=== PATIENT | female | born 1945 | race Caucasian/White ===

== ENCOUNTER → 2018-11-18 13:52 | Outpatient (CLI) | payer MEDICARE, SELFPAY ==
--- NOTE | 2018-11-18 | DI.MG.S_ITS ---
BILATERAL DIGITAL SCREENING MAMMOGRAM 3D/2D WITH CAD: 11/18/2018 CLINICAL: Routine screening. Comparison is made to exams dated: 03/01/2015 mammogram, 02/23/2014 mammogram, and 02/10/2013 mammogram - [facility]. The tissue of both breasts is predominantly fatty. Current study was also evaluated with a Computer Aided Detection (CAD) system. No significant masses, calcifications, or other findings are seen in either breast. There has been no significant interval change. IMPRESSION: NEGATIVE There is no mammographic evidence of malignancy. A 1 year screening mammogram is recommended. This exam was interpreted at Station ID: [id number]. NOTE: For mammograms, a report in lay terms will be sent to the patient. Approximately 15% of breast malignancies will not be visualized mammographically. In the management of a palpable breast mass, a negative mammogram must not discourage biopsy of a clinically suspicious lesion. Electronically Signed By: Eliud ivey/sonal:11/18/2018 17:19:53 letter sent: Normal Exam ACR BI-RADS Category 1: Negative [id number]
== END ==
PROVIDERS: PCP Internal Medicine; Visit Provider Internal Medicine
DX: Z12.31 Encounter for screening mammogram for malignant neoplasm of breast (principal); M85.88 Other specified disorders of bone density and structure, other site; Z78.0 Asymptomatic menopausal state
CPT/HCPCS: 77063; 77067; 77080

== ENCOUNTER → 2020-01-13 14:49 | Outpatient (CLI) | payer MEDICARE, SELFPAY ==
--- NOTE | 2020-01-13 15:05 | DI.ECHO.S_ITS ---
Echocardiogram Report + + :Name: LUCIE MCMANUS Study Date: 01/13/2020 Height: 63.5 in: :[facility] Weight: 195 lb : : Gender: Female BSA: 1.9 m2 : :: 1945 Age: 74 yrs BP: 148/91 mmHg: :Reason For Study: EDEMA : :Ordering Physician: Dr. Miner : :Sarthak Performed By: Mora Hahn : :Referring: DEVORA CHANG : + + Interpretation Summary The patient was in sinus bradycardia with heart rates between 45-51 bpm during the exam. Left ventricular wall thickness is mildly increased. The left ventricular ejection fraction is normal. There are no focal wall motion abnormalities. Diastolic parameters suggest a relaxation abnormality of the left ventricle, consistent with probable normal filling pressures. The right ventricle is normal in size and function. The right ventricular systolic pressure is estimated to be at least 28 mmHg based on an estimated right atrial pressure of 3 mm Hg. Procedure: A two-dimensional transthoracic echocardiogram with color flow and Doppler was performed. The study quality was technically adequate. There is no prior echocardiogram noted for this patient. The patient was in sinus bradycardia with heart rates between 45-51 bpm during the exam. Left Ventricle: The left ventricle is normal in size. Left ventricular wall thickness is mildly increased. The ejection fraction is estimated to be 60- 65%. The left ventricular ejection fraction is normal. There are no focal wall motion abnormalities. Diastolic parameters suggest a relaxation abnormality of the left ventricle, consistent with probable normal filling pressures. Right Ventricle: The right ventricle is normal in size and function. Atria: Both atria are normal in size. There is no Doppler evidence for an interatrial shunt. Mitral Valve: The mitral valve is normal in structure and function. There is trace mitral regurgitation. Aortic Valve: The aortic valve is trileaflet. The aortic valve opens well. There is no aortic valve stenosis. No aortic regurgitation is present. Tricuspid Valve: The tricuspid valve is normal in structure and function. The right ventricular systolic pressure is estimated to be at least 28 mmHg based on an estimated right atrial pressure of 3 mm Hg. There is mild tricuspid regurgitation. Pulmonic Valve: The pulmonic valve leaflets are thin and pliable; valve motion is normal. There is no pulmonic valvular regurgitation. Great Vessels: The aortic root is normal size. The dimensions of the ascending aorta are normal. The IVC is of normal diameter and collapses greater than 50% with a sniff. This suggests a low right atrial pressure of 3 mm Hg. Pericardium/ Pleura There is no pericardial effusion. There is no pleural effusion. MMode/2D Measurements & Calculations LVIDd: 4.0 cm LVOT diam: 2.0 cm LVIDs: 2.9 cm Ao root diam: 3.6 cm FS: 28.0 % asc Aorta Diam: 3.3 cm EPSS: 0.76 cm Ao Arch Diam (Prox Trans): 2.8 cm IVSd: 1.2 cm LVPWd: 1.2 cm LV victor. diameter/BSA (cm/m^2): 2.1 LV sys. diameter/BSA (cm/m^2): 1.5 LA A2 area: 18.9 cm2 RA long axis: 4.5 cm LA A4 area: 14.8 cm2 RA area: 11.5 cm2 LA length (vol): 4.8 cm RA vol: 25.3 ml LA vol: 49.8 ml RA : 13.1 ml/m2 LA vol index: 25.9 ml/m2 IVC diam: 1.3 cm RVD1 (basal): 3.2 cm TAPSE: 2.6 cm Doppler Measurements & Calculations Ao V2 max: 119.3 cm/sec LVOT Max Yeyo: 95.3 cm/sec Ao V2 mean: 75.5 cm/sec LV V1 max P.6 mmHg Ao max P.7 mmHg LV V1 VTI: 21.9 cm Ao mean P.7 mmHg NIKKIE(I,D): 2.6 cm2 Ao V2 VTI: 27.6 cm NIKKIE(V,D): 2.6 cm2 sev ratio: 0.79 NIKKIE indexed to BSA (cm^2/m^2): 1.3 MV E max yeyo: 62.3 cm/sec TR max yeyo: 229.1 cm/sec MV A max yeyo: 85.2 cm/sec TR max P.2 mmHg MV E/A: 0.73 PA V2 max: 76.6 cm/sec Med Peak E' Yeyo: 3.8 cm/sec PA V2 mean: 47.4 cm/sec E/E' med: 16.5 PA mean P.1 mmHg Lat Peak E' Yeyo: 7.3 cm/sec PA pr(Accel): 31.0 mmHg E/E' lat: 8.5 E/e' average: 12.5 MV dec time: 0.26 sec SV(LVOT): 71.3 ml Electronically signed by: Jason Blanco M.D. on Reading Physician:01/13/2020 08:36 PM
[2020-01-13 17:18] LABS: Add Manual Diff / Slide Review NO; Basophils Absolute Auto 100 /uL (0-100); Basophils Percent Auto 1.4 % (0-2); Eosinophils Absolute Auto 200 /uL (0-450); Eosinophils Percent Auto 2.3 % (2-4); Hematocrit 45.9 % (36-46); Hemoglobin 15.6 g/dL (12.0-16.0); Lymphocytes Absolute Auto 1800 /uL (1100-4500); Mean Corpuscular Hemoglobin 31.9 PG (26-34); Monocytes Absolute Auto 600 /uL (0-900); Monocytes Percent Auto 8.9 % (3-14); Neutrophils Absolute Auto 4100 /uL (1500-7000); Neutrophils Percent Auto 61.4 % (50-75); Platelet Count 216 X10^3/uL (150-400); Red Blood Cell Count 4.88 X10^6/uL (4.0-5.2); Red Cell Distribution Width 13.1 % (11.6-14.8); White Blood Cell Count 6.7 X10^3/uL (4.5-11.0)
[2020-01-13 17:48] LABS: Alanine Aminotransferase 49 IU/L (<35); Albumin 4.1 g/dL (3.5-5.0); Albumin Globulin Ratio 1.5 (1.0-2.8); Alkaline Phosphatase 95 U/L (38-126); Aspartate Aminotransferase 39 IU/L (14-36); BUN Creatinine Ratio 17.9 (6-22); Bilirubin Total 0.8 mg/dL (0.2-1.3); Blood Urea Nitrogen 14 mg/dL (7-17); Calcium 9.7 mg/dL (8.4-10.2); Carbon Dioxide 31 mmol/L (22-32); Chloride 102 mmol/L (98-107); Cholesterol 159 mg/dL (140-199); Estimated Glomerular Filt Rate > 60.0 mL/min (>60); Globulin 2.8 g/dL (1.7-4.1); Glucose 85 mg/dL (80-110); HDL Cholesterol 68 mg/dL (40-60); HEMOLYSIS < 15 (0-50); LDL Cholesterol Calculated 60 mg/dL (<100); Potassium 3.8 mmol/L (3.4-5.1); Sodium 139 mmol/L (137-145); Total Protein 6.9 g/dL (6.3-8.2); Triglycerides 155 mg/dL (35-150)
[2020-01-13 18:14] LABS: TSH w/ Reflex to FT4 3.15 uIU/mL (0.47-4.68)
== END ==
PROVIDERS: PCP Internal Medicine; Referring Provider Internal Medicine; Visit Provider Internal Medicine
DX: I07.1 Rheumatic tricuspid insufficiency (principal); R60.9 Edema, unspecified; I10 Essential (primary) hypertension; E66.9 Obesity, unspecified; E78.00 Pure hypercholesterolemia, unspecified
CPT/HCPCS: 36415; 80053; 80061; 84443; 85025; 93306

== ENCOUNTER → 2020-03-20 13:38 | Outpatient (CLI) | payer MEDICARE, SELFPAY ==
[2020-03-20 15:37] LABS: Alanine Aminotransferase 50 IU/L (<35); Albumin 4.1 g/dL (3.5-5.0); Albumin Globulin Ratio 1.3 (1.0-2.8); Alkaline Phosphatase 93 U/L (38-126); Aspartate Aminotransferase 40 IU/L (14-36); Bilirubin Total 0.8 mg/dL (0.2-1.3); Bilirubin Unconjugated 0.6 mg/dL (0.0-1.1); Globulin 3.1 g/dL (1.7-4.1); HEMOLYSIS < 15 (0-50); Total Protein 7.2 g/dL (6.3-8.2)
== END ==
PROVIDERS: PCP Internal Medicine; Referring Provider Internal Medicine; Visit Provider Internal Medicine
DX: R74.8 Abnormal levels of other serum enzymes (principal)
CPT/HCPCS: 36415; 80076

== ENCOUNTER → 2020-06-26 12:13 | Outpatient (CLI) | payer MEDICARE, OTHER, SELFPAY ==
--- NOTE | 2020-06-26 | DI.US.S_ITS ---
PROCEDURE: US ABDOMEN LIMITED INDICATIONS: abn lfts TECHNIQUE: Real-time focused scanning was performed of the abdomen, with image documentation. COMPARISON: None. FINDINGS: The liver demonstrates normal size. The liver demonstrates generalized moderately increased echogenicity. This decreases ultrasound sensitivity for detection of hepatic masses. There is an apparent mobile sludge ball seen that measures up to 3.4 cm. No definite shadowing is seen. The gallbladder wall is not thickened, measuring 3 mm or less. No specific pericholecystic fluid is seen. The sonographic Trevino sign is negative. There is no biliary dilatation, the common bile duct measures 5.5 mm. No significant pancreatic abnormality is seen on these images. IMPRESSION: The liver demonstrates increased echogenicity. This finding is nonspecific, yet it is most commonly attributed to fatty infiltration. Apparent mobile sludge ball, without additional sonographic signs of cholecystitis. No biliary dilatation is seen. Dictated by: Darin Leslie M.D. on 06/27/2020 at 14:23 Approved by: Darin Leslie M.D. on 06/27/2020 at 14:24
== END ==
PROVIDERS: PCP Internal Medicine; Referring Provider Internal Medicine; Visit Provider Internal Medicine
DX: R74.8 Abnormal levels of other serum enzymes (principal)
CPT/HCPCS: 76705

== ENCOUNTER → 2020-07-24 15:19 | Outpatient (CLI) | payer MEDICARE, SELFPAY ==
[2020-07-24 16:39] LABS: Alanine Aminotransferase 49 IU/L (<35); Albumin 4.1 g/dL (3.5-5.0); Albumin Globulin Ratio 1.4 (1.0-2.8); Alkaline Phosphatase 95 U/L (38-126); Aspartate Aminotransferase 43 IU/L (14-36); Bilirubin Total 0.6 mg/dL (0.2-1.3); Bilirubin Unconjugated 0.5 mg/dL (0.0-1.1); HEMOLYSIS 15 (0-50); Total Protein 7.1 g/dL (6.3-8.2)
== END ==
PROVIDERS: PCP Internal Medicine; Referring Provider Internal Medicine; Visit Provider Internal Medicine
DX: R74.8 Abnormal levels of other serum enzymes (principal)
CPT/HCPCS: 36415; 80076

== ENCOUNTER 2021-05-25 15:20 | Emergency (ER) | payer MEDICARE, SELFPAY ==
[2021-05-25 15:25] VITALS: BP 144/65; PULSE 52; RESP 14; TEMP 36.6; O2SAT 94; BMI 32.9
--- NOTE | 2021-05-25 15:30 | DI.RAD.S_ITS ---
PROCEDURE: XR SHOULDER LT MIN 2V INDICATIONS: fall with shoulder pain TECHNIQUE: 2 views of the shoulder were acquired. COMPARISON: None. FINDINGS: Bones: There is a comminuted and mildly displaced of the proximal humerus in the region of the surgical neck. No additional osseous fracture is identified on the included views. Soft tissues: No suspicious soft tissue calcifications. IMPRESSION: Comminuted and mildly displaced fracture of the proximal humerus. Dictated by: Luis Schrader M.D. on 05/25/2021 at 15:53 Approved by: Luis Schrader M.D. on 05/25/2021 at 15:55
--- NOTE | 2021-05-25 16:50 | ED_ITS ---
HPI - Fall General Chief Complaint: Fall Stated Complaint: Fall onto shoulder Time Seen by Provider: 05/25/21 16:35 Source: patient Mode of arrival: EMS History of Present Illness HPI Narrative: The patient was out of her home prior to arrival, trying to retrieve her trash can down the driveway. She stumbled, and went down, landing on her left shoulder. She describes having her head in the can. She denies any head or neck injuries. She has no back pain. She has no numbness or weakness in her hands, but she has severe left shoulder pain. She is ambulatory with no hip or lower extremity injuries. She is right-hand dominant. Her only significant complaint is left shoulder pain. Related Data Previous Rx's Medication Instructions Recorded hydrocodone 5 mg-acetaminophen 325 1 tab PO Q4-6H PRN #20 tab 05/25/21 mg tablet Allergies Allergy/AdvReac Type Severity Reaction Status Date / Time No Known Drug Allergies Allergy Verified 05/25/21 15:30 Review of Systems Constitutional Constitutional: Reports as per HPI Comments: No recent illness. No complaints except right shoulder pain as noted in HPI. Patient History Medical History (Updated 05/25/21 @ 17:49 by Sabas Hoffman MD) No significant past medical history Surgical History No significant past surgical history Social History Smoking Status: Unknown if ever smoked Smoking Status: Unknown if ever smoked alcohol intake frequency: 0-2 drinks per day Substance Use Type: does not use Exam Initial Vital Signs Initial Vital Signs: Vital Signs Temperature 97.8 F 05/25/21 15:25 Pulse Rate 52 L 05/25/21 15:25 Respiratory Rate 14 05/25/21 15:25 Blood Pressure 144/65 H 05/25/21 15:25 Pulse Oximetry 94 05/25/21 15:25 Const General: cooperative, healthy appearing and comfortable [facility] Head: normocephalic and atraumatic Eyes General: appearance normal, both eyes and all related structures Pupils: PERRL EOM: EOM intact bilaterally Neck Neck: normal visual inspection Chest Chest: normal inspection of the chest (No tenderness.) Resp Effort & Inspection: normal respiratory effort Auscultation: clear to auscultation bilaterally Cardio Palpation: normal PMI Rate: regular rate Rhythm: regular rhythm Heart Sounds: S1 normal and S2 normal GI Palpation: No tender Back/Spine/Pelvis Back: normal to inspection and No back tenderness Skin General: no rashes or lesions noted Neuro General: patient alert, patient awake, patient oriented x3 and no focal motor deficits Extrem Other: Palpable defect in the proximal left humerus bone. No tenderness throughout the left elbow, and the remainder left arm. Left radial pulse is normal. Right arm, and both lower extremities are atraumatic. Psych Appearance: grossly normal Procedures Orthopedic Splinting/Casting Injury #1: Side: right Upper Extremity Injury Location: shoulder Upper Extremity Immobilizer: sling/shoulder immobilizer Post splinting neuro exam: intact Post splinting vascular exam: intact Placed by: Nursing Course Course Course Narrative: The patient was given Dilaudid, her left arm was placed in a sling. She will be discharged on hydrocodone for additional pain management she is referred to Dr. Arielle Hernandez for follow-up. Orders Ordered: ED Orders 05/25/21 15:30 XR shoulder LT min 2V Stat Discontinued Medications Hydromorphone HCl (Hydromorphone 1 Mg Inj) 1 mg IM NOW ONE Stop: 05/25/21 16:51 Last Admin: 05/25/21 16:56 Dose: 1 mg Documented by: IGNACIA Vital Signs Vital signs: Vital Signs - 8 hr 05/25/21 15:25 05/25/21 17:31 Temperature 97.8 F Pulse Rate 52 L 58 L Respiratory Rate 14 Blood Pressure 144/65 H 108/57 L Pulse Oximetry 94 97 MDM - Fall Imaging Data Left shoulder x-ray: Radiologist's Impression: Comminuted and mildly displaced fracture of the proximal humerus. Discharge Plan Departure Patient Disposition: Home Clinical Impression: Closed fracture of left proximal humerus Instructions: Humeral Shaft Fracture Activity Restrictions/Additional Instructions: Keep your left arm immobilized in the sling. Tylenol or Advil as needed for pain. Hydrocodone every 4 hours for added pain control. Follow-up with Dr. Arabella Hernandez. Call for an appointment. Prescriptions: New hydrocodone-acetaminophen 5-325 mg tablet 1 tab PO Q4-6H PRN (Reason: pain) Qty: 20 0RF Referrals: Regina Bell MD [Physician] - Kristofer De León MD [Primary Care Provider] -
[2021-05-25] MEDS: HYDROMORPHONE 1 MG INJ IM (16:56)
[2021-05-25 17:31] VITALS: BP 108/57; PULSE 58; O2SAT 97
[2021-05-25] MEDS: HYDROCODONE/ACET 5/325 TABLET 1 TAB PO (18:08)
[2021-05-25] MEDS: ONDANSETRON 4 MG ODT PREPACK 1 BOTTLE MISC (18:41)
== END 2021-05-25 18:25 | disposition home or self-care (01) ==
PROVIDERS: Emergency Provider Emergency Medicine; PCP Internal Medicine
DX: S42.202A Unspecified fracture of upper end of left humerus, initial encounter for closed fracture (principal); W01.0XXA Fall on same level from slipping, tripping and stumbling without subsequent striking against object, initial encounter
CPT/HCPCS: 73030; 96372; 99283; 99284; J1170

== ENCOUNTER 2021-07-08 13:48 | Emergency (ER) | payer MEDICARE, SELFPAY ==
[2021-07-08] VITALS (13 sets, daily range): BP systolic 146–170; BP diastolic 67–79; PULSE 50–70; RESP 16–18; TEMP 36.7; O2SAT 92–98; BMI 33.6
--- NOTE | 2021-07-08 14:18 | ED_ITS ---
HPI - Extremity Problem General Chief complaint: Extremity Problem,Nontraumatic Stated complaint: Hip Pain Time Seen by Provider: 07/08/21 14:00 Source: patient Mode of arrival: EMS Limitations: no limitations History of Present Illness HPI Narrative: This is a 75-year-old female who comes in with complaint of left buttock pain radiating down her legs towards her calf. Patient states she has had some discomfort but worsened significantly over the weekend. She states it starts in her left buttock radiates down words. She had some tingling but no loss of sensation she does not appreciate weakness but is painful when she flexes at the hip or tries to walk or weightbear. She does not recall any recent trauma or injury. She does have a left humeral fracture that occurred 6 weeks ago and it has changed how she moves and she has done a lot more twisting and using a baseball bat for a cane to help her get around. She states [place] fracture has been improving she is gaining a lot more mobility and motion. She states when she lays flat or is still she does not have pain. He states today she tried some hydrocodone had minimal improvement. She has not appreciated any swelling, redness or warmth. 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 Related Data Previous Rx's Medication Instructions Recorded hydrocodone 5 mg-acetaminophen 325 1 tab PO Q4-6H PRN #20 tab 05/25/21 mg tablet diazepam 2 mg tablet (Valium) 2 mg PO TID PRN #10 tab 07/08/21 hydrocodone 5 mg-acetaminophen 325 1 tab PO Q6H PRN #10 tab 07/08/21 mg tablet lidocaine 5 % topical patch 1 patch TOPICAL DAILY PRN #15 ea 07/08/21 meloxicam 7.5 mg tablet 7.5 mg PO DAILY PRN #10 tab 07/08/21 Allergies Allergy/AdvReac Type Severity Reaction Status Date / Time No Known Drug Allergies Allergy Verified 05/25/21 15:30 Review of Systems Review of Systems ROS Unobtainable: All systems reviewed & are unremarkable except as noted in HPI and below Patient History Medical History No significant past medical history Surgical History No significant past surgical history Social History Smoking Status: Unknown if ever smoked Smoking Status: Unknown if ever smoked alcohol intake frequency: 0-2 drinks per day Substance Use Type: does not use Exam Narrative Exam Narrative: GENERAL: Alert and oriented x three, female in mild distress. HEENT: Head normocephalic, atraumatic, EOMI, pupils reactive, face symmetric, moist mucous membranes NECK: Supple, full range of motion CARDIOVASCULAR: Regular rate and rhythm without murmurs, rubs or gallops. RESPIRATORY: Breath sounds equal bilaterally, no wheezes rales or rhonchi. ABDOMEN: Soft, nontender. Normoactive bowel sounds all 4 quadrants. No guarding or rebound, rigidity, no mass : No CVA tenderness BACK: No cervical, thoracic or lumbar vertebral point tenderness. Patient has normal range of motion. Patient's gait is [antalgic/normal]. Muscle strength is 5/5 in lower extremities, Dorsalis pedis and tibialis pulses are 2+ and lower extremities. Sensation is intact in the lower extremities. EXTREMITIES: Normal range of motion, no clubbing or edema. Neurovascularly intact. Patient does not have any point tenderness on examination the buttock, thigh or hip. No weakness appreciated. With passive flexion patient is asymptomatic. NEUROLOGICAL: Cranial nerves II through XII grossly intact. Moving all extremities. SKIN: Warm, dry, no petechiae, no rashes or lesions. Initial Vital Signs Initial Vital Signs: Vital Signs Temperature 98.1 F 07/08/21 14:03 Pulse Rate 53 L 07/08/21 14:03 Respiratory Rate 18 07/08/21 14:03 Blood Pressure 152/71 H 07/08/21 14:03 Pulse Oximetry 98 07/08/21 14:03 Course Orders Ordered: ED Orders 07/08/21 14:34 XR hip w pel if done LT 2V Stat Discontinued Medications Hydrocodone Bitart/Acetaminophen (Hydrocodone/Acet 5/325 Prepack) 1 bottle MISC SEEINSTR ONE Stop: 07/08/21 17:27 Diazepam (Diazepam 5 Mg Tablet) 10 mg PO NOW ONE Stop: 07/08/21 14:35 Last Admin: 07/08/21 14:52 Dose: 10 mg Documented by: ALMA Ketorolac Tromethamine (Ketorolac 30 Mg/Ml Vial) 30 mg IM NOW ONE Stop: 07/08/21 14:35 Last Admin: 07/08/21 14:53 Dose: 30 mg Documented by: ALMA Lidocaine (Lidocaine Patch 1 Each Adh..Patch) 1 each TOP NOW ONE Stop: 07/08/21 14:35 Last Admin: 07/08/21 14:52 Dose: 1 each Documented by: ALMA Prednisone (Prednisone 20 Mg Tablet) 60 mg PO NOW ONE Stop: 07/08/21 14:40 Last Admin: 07/08/21 14:52 Dose: 60 mg Documented by: ALMA Reevaluation(s) Reevaluation #1: Patient had hypoxia after the Valium. She has healing arousable but does drop her O2. After some monitoring were able to wean her off O2 for over an hour and does have any additional hypoxia. Time: 17:33 Reevaluation #2: Patient able to ambulate here in the department. She has a left humeral fracture she can not use a walker but rib to find case which may be helpful she has been using a baseball bat at home. Vital Signs Vital signs: Vital Signs - 8 hr 07/08/21 14:03 07/08/21 14:30 07/08/21 15:00 Temperature 98.1 F Pulse Rate 53 L 56 L 56 L Respiratory Rate 18 18 16 Blood Pressure 152/71 H 170/79 H 163/71 H Pulse Oximetry 98 95 92 07/08/21 15:34 07/08/21 15:35 07/08/21 15:36 Temperature Pulse Rate 50 L 50 L 61 Respiratory Rate 16 17 Blood Pressure 147/69 H 147/69 H Pulse Oximetry 97 97 98 07/08/21 16:00 07/08/21 16:01 07/08/21 16:30 Temperature Pulse Rate 54 L 55 L 68 Respiratory Rate Blood Pressure 146/67 H 161/71 H Pulse Oximetry 96 96 97 07/08/21 17:00 07/08/21 17:01 07/08/21 17:03 Temperature Pulse Rate 64 68 59 L Respiratory Rate 18 Blood Pressure 148/73 H 148/73 H Pulse Oximetry 95 93 94 07/08/21 17:14 Temperature Pulse Rate 70 Respiratory Rate Blood Pressure 154/73 H Pulse Oximetry 94 MDM - Extremity (Nontraumatic) Imaging Data Extremity x-ray #1: Radiologist's Impression: [address] [address] XRay Report Signed Patient: Jenni Mota MR#: [id number] : 1945 Acct:[id number] Age/Sex: 75 / F Date of Service: 07/08/21 Loc: ED Accession Number: [id number] ?? Procedure: XR hip w pel if done LT 2V Ordering Provider: Qi Cheng D.O. PROCEDURE:? XR HIP W PEL IF DONE LT 2V ? INDICATIONS:? left hip pain, no fall. ? TECHNIQUE:? AP pelvis with cross-table lateral view of the left hip. ? COMPARISON:? None. ? FINDINGS:? ? Bones:? No acute fractures or dislocations.? Pelvic ring appears intact.? No suspicious bony lesions.? Moderate to severe degenerative changes in the hips bilaterally with joint space narrowing, subchondral sclerosis, and marginal osteophyte formation.? Findings may be slightly worse on the right.? Degenerative changes are seen in the included lower lumbar spine. ? Soft tissues:? The visualized bowel gas pattern is normal.? No suspicious soft tissue calcifications.? ? ? IMPRESSION:? No acute osseous abnormality.? Moderate to severe bilateral hip osteoarthrosis.? If clinical suspicion and/or symptoms persist, additional imaging with repeat plain films, or advanced imaging (e.g. CT, MRI) may be helpful for further assessment. ? ? Dictated by: Luis Schrader M.D. on 07/08/2021 at 14:55 ? ? Approved by: Luis Schrader M.D. on 07/08/2021 at 14:58?? [facility] Narrative Medical decision making narrative: This is a 75-year-old female comes emergency department with complaint of left hip pain that is been worsened likely by changing her gait and movement secondary to a left humeral fracture that occurred 6 weeks ago. She has been using a baseball bat as a cane. She has had some discomfort but significantly worsened this weekend. She tried massage which did not seem to change anything. If she is still, lying flat or not walking sure pain is not present. With flexion movement she has increased pain in the left buttock SI region and radiating down her leg. She does not have any new numbness or tingling. No weakness. She does not any back tenderness on examination. She does have osteoarthritic changes on x-ray with no other known trauma. She had improvement with pain medications but was hypoventilating 2nd to 10 mg Valium was monitored and has improved. She is ambulating without assistance in the department but was given a cane as this may be helpful for her. Discharge Plan Departure Patient Disposition: Home Clinical Impression: Left lumbar radiculopathy, Hip osteoarthritis Instructions: DI for Osteoarthritis Activity Restrictions/Additional Instructions: Follow-up with your physician for recheck. I would also discussed that your PT appointment tomorrow about helping you to adjust your motion is not only for your left upper extremity but also for your left lower extremity. Take steroids daily until gone. You may use lidocaine patch to the affected area daily. Take muscle relaxer 1 tablet every 8 hours as needed for muscle spasm. You may take pain medication 1 tablet every 12 hours as needed. You can take Tylenol up to a 1000 mg every 8 hours with this medication as well Prescription sent to [facility] Please return for rapidly worsening symptoms, inability to walk, loss of bowel or bladder control, new weakness, in the mid to lift or move your leg, your foot, new redness warmth or skin changes or other new or concerning symptoms. Prescriptions: New lidocaine 5 % adhesive patch,medicated 1 patch topical DAILY PRN (Reason: pain) Qty: 15 0RF Rx Instructions: leave on most painful area for up to 12 hrs diazepam [Valium] 2 mg tablet 2 mg PO TID PRN (Reason: muscle spasm) Qty: 10 0RF hydrocodone-acetaminophen 5-325 mg tablet 1 tab PO Q6H PRN (Reason: pain) Qty: 10 0RF meloxicam 7.5 mg tablet 7.5 mg PO DAILY PRN (Reason: pain) Qty: 10 0RF No Action hydrocodone-acetaminophen 5-325 mg tablet 1 tab PO Q4-6H PRN (Reason: pain) Qty: 20 0RF Referrals: Kristofer De León MD [Primary Care Provider] -
--- NOTE | 2021-07-08 14:34 | DI.RAD.S_ITS ---
PROCEDURE: XR HIP W PEL IF DONE LT 2V INDICATIONS: left hip pain, no fall. TECHNIQUE: AP pelvis with cross-table lateral view of the left hip. COMPARISON: None. FINDINGS: Bones: No acute fractures or dislocations. Pelvic ring appears intact. No suspicious bony lesions. Moderate to severe degenerative changes in the hips bilaterally with joint space narrowing, subchondral sclerosis, and marginal osteophyte formation. Findings may be slightly worse on the right. Degenerative changes are seen in the included lower lumbar spine. Soft tissues: The visualized bowel gas pattern is normal. No suspicious soft tissue calcifications. IMPRESSION: No acute osseous abnormality. Moderate to severe bilateral hip osteoarthrosis. If clinical suspicion and/or symptoms persist, additional imaging with repeat plain films, or advanced imaging (e.g. CT, MRI) may be helpful for further assessment. Dictated by: Luis Schrader M.D. on 07/08/2021 at 14:55 Approved by: Luis Schrader M.D. on 07/08/2021 at 14:58
[2021-07-08] MEDS: predniSONE 20 MG TABLET 60 MG PO (14:52)
[2021-07-08] MEDS: diazePAM 5 MG TABLET 10 MG PO (14:52)
[2021-07-08] MEDS: LIDOCAINE PATCH 1 EACH ADH..PATCH TOP (14:52)
[2021-07-08] MEDS: KETOROLAC 30 MG/ML VIAL IM (14:53)
--- NOTE | 2021-07-08 15:36 | PC.NURSE ---
pt oxygen had dropped to 84% on RA at 1510, woke pt placed on 2LNC. sat's now mid 90's.
[2021-07-08] MEDS: HYDROCODONE/ACET 5/325 PREPACK 1 BOTTLE MISC (17:36)
== END 2021-07-08 18:02 | disposition home or self-care (01) ==
PROVIDERS: Emergency Provider Emergency Medicine; PCP Internal Medicine
DX: M54.16 Radiculopathy, lumbar region (principal); M16.0 Bilateral primary osteoarthritis of hip; R09.02 Hypoxemia
CPT/HCPCS: 73502; 96372; 99283; 99284; J1885

== ENCOUNTER → 2024-03-01 15:13 | Outpatient (CLI) | payer MEDICARE, SELFPAY ==
--- NOTE | 2024-03-01 15:19 | EKG_ITS ---
[address] [address] Test Date: 2024-03-01 Pat Name: Jenni Mota Department: [facility] Room: Gender: Female [employer]: TALIA : 1945 Requested By: Order Number: [id number] Reading MD: Alex Chacko Measurements Intervals [place] Rate: 49 P: 60 W[place]: 210 QRS: -36 QRSD: 98 T: 43 QT: 462 QTc: 417 Interpretive Statements Sinus bradycardia with 1st degree AV block Left axis deviation Possible Anterior infarct , age undetermined Electronically Signed On 03-03-2024 17:57:55 PDT by Alex Chacko
[2024-03-01 16:00] LABS: Appearance Urine UA CLOUDY; Bilirubin Urine UA NEGATIVE (NEGATIVE); Color Urine UA YELLOW; Glucose Urine UA NEGATIVE (Negative); Ketones Urine UA 1+ (NEGATIVE); Leukocyte Esterase Urine UA 2+ (NEGATIVE); Nitrite Urine UA NEGATIVE (Negative); Occult Blood Urine UA NEGATIVE (Negative); Protein Urine UA TRACE (Negative); Specific Gravity Urine UA >=1.030 (1.000-1.035)
[2024-03-01 16:02] LABS: pH Urine UA 5.5 (4.5-8.0)
[2024-03-01 16:16] LABS: Bacteria Urine Few (2-10); Culture Indicated Urine Specimen Cultured; Mucus Urine 1+ (Negative); RBC Urine 0-1/HPF (0-5/HPF); Squamous Epithelial Cell Urine 1-5 /HPF (0-5/HPF); Urine Volume Low Vol <10mL (spun); WBC Urine 5-10/HPF (0-5/HPF)
[2024-03-01 16:17] LABS: Carbon Dioxide 29 mmol/L (22-32); Chloride 103 mmol/L (98-107); HEMOLYSIS < 15 (0-50)
[2024-03-01 16:19] LABS: BUN Creatinine Ratio 20.3 (6-22); Blood Urea Nitrogen 15 mg/dL (7-17); Calcium 9.9 mg/dL (8.4-10.2); Estimated Glomerular Filt Rate > 60 mL/min (>60); Glucose 91 mg/dL (80-110); Potassium 3.7 mmol/L (3.4-5.1); Sodium 137 mmol/L (137-145)
[2024-03-01 16:20] LABS: Add Manual Diff / Slide Review NO; Basophils Absolute Auto 100 /uL (0-100); Basophils Percent Auto 1.3 % (0-2); Eosinophils Absolute Auto 300 /uL (0-450); Eosinophils Percent Auto 3.2 % (2-4); Hematocrit 46.6 % (36-46); Hemoglobin 15.6 g/dL (12.0-16.0); Hemoglobin A1C% w Est Avg Glu 5.1 % (4.0-6.0); Lymphocytes Absolute Auto 1500 /uL (1100-4500); Lymphocytes Percent Auto 18.2 % (25-40); Mean Corpuscular HGB Conc 33.5 % (30-36); Mean Corpuscular Hemoglobin 31.2 PG (26-34); Mean Corpuscular Volume 93.2 fL (80-100); Monocytes Absolute Auto 600 /uL (0-900); Monocytes Percent Auto 6.7 % (3-14); Neutrophils Absolute Auto 5900 /uL (1500-7000); Neutrophils Percent Auto 70.6 % (50-75); Platelet Count 275 X10^3/uL (150-400); Red Cell Distribution Width 13.8 % (11.6-14.8); White Blood Cell Count 8.3 X10^3/uL (4.5-11.0)
== END ==
PROVIDERS: PCP Student in an Organized Health Care Education/Training Program; Referring Provider Orthopaedic Surgery; Visit Provider Orthopaedic Surgery
DX: Z01.818 Encounter for other preprocedural examination (principal); R73.9 Hyperglycemia, unspecified; Z01.812 Encounter for preprocedural laboratory examination; N39.0 Urinary tract infection, site not specified
CPT/HCPCS: 36415; 80048; 81001; 83036; 85025; 87086; 93005

== ENCOUNTER 2024-03-25 06:05 | Day surgery (SDC) | payer MEDICARE, SELFPAY ==
[2024-03-11 12:44] VITALS: BMI 29.7
[2024-03-18 15:07] VITALS: BMI 29.7
[2024-03-25] VITALS (22 sets, daily range): BP systolic 71–142; BP diastolic 41–80; PULSE 43–76; RESP 6–20; TEMP 35.8–36.9; O2SAT 90–100; BMI 29.7
--- NOTE | 2024-03-25 | DI.RAD.S_ITS ---
PROCEDURE: XR HIP W PEL IF DONE RT 4V INDICATIONS: ANTERIOR RIGHT HIP INTRA OP TECHNIQUE: 4 digital images of the right hip were submitted from the OR COMPARISON: [facility], CR, XR HIP W PEL IF DONE LT 2V, 07/08/2021, 14:26. FINDINGS: Bones: There are no osseous abnormalities. SI and hip joints: Right total hip prosthesis is anatomically aligned. Severe left hip degeneration noted. Soft tissues: Mild soft tissue swelling at the surgical site appreciated IMPRESSION: Right total hip prosthesis in anatomic alignment. Severe left hip degeneration Dictated by: Matthew Sweeney M.D. on 03/26/2024 at 8:56 Approved by: Matthew Sweeney M.D. on 03/26/2024 at 8:57
--- NOTE | 2024-03-25 06:00 | DI.RAD.S_ITS ---
PROCEDURE: XR HIP W PEL IF DONE RT 2V INDICATIONS: ROSA MARIA TECHNIQUE: AP pelvis and lateral view of the hip acquired. COMPARISON: [facility], CR, XR HIP W PEL IF DONE LT 2V, 07/08/2021, 14:26. FINDINGS: Bones: Patient is status post right hip arthroplasty, with hardware components in expected positions. The hip joint appears congruent. The visualized bony structures appear intact. Soft tissues: Overlying postoperative changes are noted. No suspicious soft tissue densities. IMPRESSION: Expected post-operative appearance of a hip arthroplasty. Dictated by: Ten Sigala M.D. on 03/25/2024 at 10:52 Approved by: Ten Sigala M.D. on 03/25/2024 at 10:53
[2024-03-25] MEDS: LACTATED RINGERS 1,000 ML 42 ML IV ×2 (06:45→11:00)
[2024-03-25] MEDS: ACETAMINOPHEN 325 MG TABLET 975 MG PO (06:52)
[2024-03-25] MEDS: MELOXICAM 7.5 MG TABLET 15 MG PO (06:52)
[2024-03-25] MEDS: VANCOMYCIN 1,000 MG/200 ML PIGGYBACK 200 MG IV (06:52)
--- NOTE | 2024-03-25 06:56 | P.OP_ITS ---
Operative Date/Time/Diagnoses Date of procedure: 03/25/24 Time of procedure: 08:00 Pre-op diagnosis: Severe right hip OA Post-op diagnosis: same Procedure & Clinicians Procedure: Right total hip arthroplasty anterior approach Same procedure as scheduled: Yes Indications: The patient has had progressively worsening right hip pain with radiographic changes consistent with arthritis. Non-operative management has failed and the patient has requested total hip replacement. The risks, benefits and alternatives to surgery were discussed with the patient prior to proceeding. Risks discussed included, but were not limited to, failure to relieve pain, leg length discrepancy, dislocation, stiffness, infection, nerve damage, deep venous thrombosis, pulmonary embolism, stroke, coma, heart attack, permanent paralysis and , as well as the potential need for eventual revision of the prosthetic. Surgeon: Bonny Hernandez Strategic Account Director: Gerard Martinez Anesthesia Type: Spinal Operative Notes Findings: Severe right hip OA, self bone, adequate stability Closure Type: primary Specimen(s): none sent Prosthetic devices, grafts, tissues, transplants, or devices: Hernandez and nephew R3 52, neutral poly liner,one 6.5 mm screw, polar stem size 4 standard offset, 36+ 0 cobalt chrome head Estimated Blood Loss (mL): 250 Blood products transfused: none Procedure in detail: The patient was brought to the operating room. Patient was carefully positioned in the supine position. Time-out was performed and antibiotics were given. Anesthesia was induced. She was positioned in the OR on the table in order to allow hyperextension of the hip. The right lower extremity was prepped and draped in a standard sterile fashion. An anterior right hip incision was made 1 fingerbreadth lateral to the anterior superior iliac spine and extended distally towards the greater trochanter. Dissection was carried out through skin and subcutaneous tissues. Superficial hemostasis was achieved. The fascia over the tensor fascia kristy was defined and incised with a knife. Two Allis clamps were used to grasp the fascia. Tensor fascia kristy was retracted laterally. A gelpi retractor was placed. Dissection was carried out down along the neck. The circumflex vessels were carefully identified and cauterized with the Aqua Mantis. A PA was used during the procedure and was essential for intraoperative retraction and safe implantation of the components. There was good visualization of the femoral neck. A Cobra was placed superior to the neck and the gluteus fibers were carefully stripped from that superior aspect of the capsule. A 2nd retractor was placed along the inferior aspect of the neck. The rectus insertion along the capsule was partially released. A 3rd retractor that was then gently placed over the rim of the acetabulum under the rectus. Capsule was carefully incised and released from the intertrochanteric line circumferentially superior to the mid sagittal line and inferiorly to the mid sagittal line until the lesser trochanter was palpable. A tag stitch was placed both in the superior and inferior limb of the capsular insertion. Along the acetabulum capsule was also released up to the mid sagittal 12:00 position. A portion of the labrum was resected. A saw was used to perform an osteotomy at the level of the intertrochanteric line and the junction of the superior femoral neck leaving approximately 1 finger breath of residual inferior neck above the lesser trochanter. A 2nd cut was made along the femoral neck at the base of the head and a napkin ring of neck was removed. Corkscrew was placed in the femoral head and the head was removed without difficulty. Retractors were then repositioned around the acetabulum. Residual labrum was resected and additional osteophytes were removed. A reamer that was 4 mm below the templated size was placed by hand in the acetabulum and it was reamed to centralize the acetabulum. It was then reamed up to 2 under the templated size and fluoroscopy was brought in to confirm the position of the reaming and depth of reaming. I reamed 1 under the anticipated size. A trial cup was placed and noted that it was appropriately sized and fluoroscopy confirmed position and depth. The component was open and inserted without difficulty fluoroscopic imaging was used to confirm that the cup had been adequately seated and was well positioned. Neutral poly liner was placed. The cup was tested and noted to be stable. Attention was then directed to the femur. The femur was gently hyperextended additional capsular release was performed as needed in order to allow adequate visualization of the proximal femur with elevation of the femur. Patient was placed in a hyperextended slightly adducted position with maximum external rotation. Box osteotome was used to check for any residual neck as well as sclerotic bone along the trochanter. Oakley pepper was placed in the femur. Additional broaching was performed. Canal finder was used to determine the alig nment of the canal and position. Size 1 broach was placed. The canal was then appropriately broached up to the templated size as long as there was adequate stability of the broach and serial advancement of the broach without excessive impingement. Specific attention was directed at avoiding varus attempting to direct the distal aspect of the broach more anteriorly and avoiding excessive anteversion. Trial reduction showed acceptable range of motion, good stability, no posterior impingement, hoahaoism of leg length and appropriate lateral shuck. I also hyperflexed the hip and checked that there was no impingement anteriorly and there was good stability with flexion, adduction and internal rotation. Marcaine and Exparel were injected. The stem was placed without difficulty. Repeat trial reduction and x-ray showed acceptable overall position, length, and no evidence of the femoral fracture. Final head was placed. Wound was meticulously irrigated with normal saline. The hip was reduced and additional Exparel and Marcaine were injected. The capsule was closed with interrupted nonabsorbable sutures. The fascia of the tensor was closed with interrupted and running Vicryl. No drain was placed. Any tensor fascia kristy muscle that appeared to be contused or injured which was a minimal amount was carefully resected. Capsule around the tensor was injected with Exparel and Marcaine. The skin was closed with barbed stitches for the subcutaneous tissue and skin. We also used surgical glue. The wound was dressed sterilely. Brief Betadine soak was also used and was meticulously irrigated with normal saline. Patient was transferred to recovery room in satisfactory condition. Complications: none Post-operative Condition: stable Disposition: Acute Care Plan for aftercare: The patient will be maintained on a standard total hip replacement protocol with weight bearing as tolerated and anterior hip precautions. The patient will receive Aspirin and sequential compression devices for DVT prophylaxis. The patient will be discharged home when safe for the home environment.
--- NOTE | 2024-03-25 06:56 | PM.PREOP ---
Pre-operative Note Interval Note History & Physical reviewed/Exam performed by Physician: Yes Changes to H&P: No
--- NOTE | 2024-03-25 07:32 | SUR.OPER ---
Patient supine on padded [place] table, one arm on padded arm board at <90, other arm padded and secured with tape across patient's chest, both legs secured in padded traction boots and positioned per surgeon, padded post at patient's groin, pressure points checked and padded.
[2024-03-25] MEDS: TRANEXAMIC ACID 1,000 MG VIAL 2000 MG INJ ×2 (08:20→09:54)
[2024-03-25] MEDS: CEFAZOLIN 2 GM/100 ML PREMIX 100 ML IV ×2 (08:25→16:23)
[2024-03-25] MEDS: BUPIVACAINE 0.25% (PF) 60 ML, EPINEPHrine 0.3 MG INJ (08:47)
[2024-03-25] MEDS: BUPIVACAINE LIPOSOME 266 MG/20 ML VIAL INJ (08:48)
[2024-03-25] MEDS: fentaNYL 100 MCG/2 ML INJ IV ×3 (10:55→11:11)
[2024-03-25] MEDS: OXYCODONE IR 5 MG TABLET PO ×3 (10:57→16:54)
--- NOTE | 2024-03-25 11:36 | SUR.PHASEII ---
Pt transferred from PACU to holding. Delay to acute care d/t nurse availability. Handoff report from Petty Ahn RN to Geovanna Layton RN.
--- NOTE | 2024-03-25 15:07 | PT.IIE ---
Current Diagnoses Unilateral primary osteoarthritis, right hip (03/25/24) Surgery Performed Operation Date: 03/25/24 07:45 Actual Procedures p Total Hip Arthroplasty/Anterior Approach(Right) - Bonny Hernandez MD Surgical History (Last Reviewed 03/25/24 @ 06:40 by Cathie Vance, RN) No significant past surgical history Medical History (Last Reviewed 03/25/24 @ 06:40 by Cathie Vance, RN) HLD (hyperlipidemia) HTN (hypertension) Migraine Physical Therapy Inpatient Evaluation/Re-Eval M1 PT/OT-IP Prior Functional Status Start: 03/25/24 13:01 Freq: NEEDED Status: Active Protocol: Document 03/25/24 14:41 MB (Rec: 03/25/24 15:07 MB [id number]) Medical Review Prior Functional Status Medical History Reviewed Yes Diet/Fluid Consistency Regular Communication WNLs Mobility and Gait Mod I with cane or walker Activities of Daily Living and IADL's I Social History Household Members none Living Arrangements House Number of Floors (Floors) One Floor Number of Stairs To Enter/Railing? No steps to enter. Home Environment Standard Height Toilet,Walk in Shower,Built-In Shower Seat Home Equipment Front Wheel Walker,Straight Cane,Raised Toilet Seat w/ Armrests,Shower Seat without Backrest,Hand Held Shower Employment Status Retired Additional Social History Comment Pt daughter is flying up from [facility] to spend 5 nights with her in her home M2 PT-IP Current Condition Start: 03/25/24 13:01 Freq: NEEDED Status: Active Protocol: Document 03/25/24 14:41 MB (Rec: 03/25/24 15:07 MB [id number]) Physical Therapy Current Condition Current Condition Evaluation Date 03/25/24 Treatment Diagnosis R anterior ROSA MARIA M3 PT-IP Subjective Start: 03/25/24 13:01 Freq: NEEDED Status: Active Protocol: Document 03/25/24 14:41 MB (Rec: 03/25/24 15:07 MB [id number]) Subjective Physical Therapy Visit Type Type Initial Evaluation Visit Start Time 14:41 Visit Stop Time 14:58 Number of ACCOUNT SERVICES ANALYST Visits 0 Physical Therapy Visit Comments Patient Comments Pt is agreeable to therapy Therapy Pain Assessment Pain When Pain Assessed At Rest Pain Present Pain Present Pain Reported Location right thigh Intensity 1 Scale Used Numeric (0 - 10) M4 PT-IP Mobility and Gait Start: 03/25/24 13:01 Freq: NEEDED Status: Active Protocol: Document 03/25/24 14:41 MB (Rec: 03/25/24 15:07 MB [id number]) PT-Bed Mobility Assessment Supine to Sit Supine to Sit Contact Guard Assistance,1 Person Assistance Scooting Scooting to Edge of Bed Contact Guard Assistance PT-Transfer Assessment Sit to and From Stand Sit to and from Stand Contact Guard Assistance,1 Person Assistance,Use of Upper Extremities Equipment Transfer Assistive Device Gait Belt,Front Wheeled Walker Orthotic/Prosthetic Devices or Brace: No Transfers Transfer Destination Toilet Transfer Technique Ambulation Transfer Ability Level of Assist Contact Guard Assistance Comments Mobility Comments PT loops gait belt so that she can use it around her foot for scooting to the EOB, bed flat. PT places looped belt around right foot Gait Assessment Gait Gait Assistance Required: Contact Guard Assist Distance (Feet) 60 Able to Maintain Weight Bearing Status Yes During Gait Assistive Devices Assistive Device Gait Belt,Front Wheeled Walker Orthotic/Prosthetic Devices or Brace: No Gait Deviations General Gait Pattern Antalgic,Decreased Stride Length,Decreased Feet Clearance,Step-to Gait,Wide Based Gait Factors Limiting Gait Function Factors Limiting Gait Function Decreased Strength,Limited Range of Motion,Pain PT-Balance Assessment Sitting Balance and Reactions Static Sitting Balance Ability Good Dynamic Sitting Balance Ability Good Standing Balance and Reactions Static Standing Balance Ability Good Dynamic Standing Balance Ability Good Device Used RW M5 PT-IP Objective Assessments Start: 03/25/24 13:01 Freq: NEEDED Status: Active Protocol: Document 03/25/24 14:41 MB (Rec: 03/25/24 15:07 [id number]) Orientation Orientation/Cognition Level of Alertness Alert Orientation Name,Age,Birthday,Month,Date, Year,Day of Week,Place, Situation Language Function Ability No Deficits Noted Safety Awareness Understands Safety Issues Memory Description No Deficits Noted Gross Range of Motion Upper Extremity ROM Impairments Defer to OT Lower Extremity ROM Assessment Right Impaired Impairments Right hip not tested post-op Strength Lower Extremity Strength Assessment Right Impaired Comments Strength Comments Right hip not tested post-op and LEs are functional Coordination Assessment Gross Coordination Gross Coordination Impaired Sensation Assessment Comments Sensation Comments Reports that post-op paresthesias are resolved Muscle Tone Muscle Tone WNL Yes M6 PT-IP Treatment Start: 03/25/24 13:01 Freq: NEEDED Status: Active Protocol: Document 03/25/24 14:41 MB (Rec: 03/25/24 15:07 MB [id number]) Physical Therapy Treatment Education Education Provided Precautions,Weight Bearing Status,Safety Other Treatments Other Treatment Performed Ed pt in no hyperextension right hip M7 PT-IP Assessment and Plan Start: 03/25/24 13:01 Freq: NEEDED Status: Active Protocol: Document 03/25/24 14:41 MB (Rec: 03/25/24 15:07 MB [id number]) PT Summary Assessment and Plan Potential Rehabilitation Potential Good Status of Condition at Evaluation Evolving Summary Impairments Pain,ROM,Strength,Balance, Coordination,Bed Mobility, Transfers,Gait,Activity Tolerance Progress Towards Goals Progressing Toward Goals Assessment Summary Pt is a pleasant lady presenting with some pain and antalgic gait same day right anterior ROSA MARIA but she mobilizes well and is not dizzy with mobility. Her BP does not drop sit to supine and her O2 sats on RA are WNLs. Pt is CGA for 60' gait and PT provides training for use of gait belt to help move right foot, safe hand placement for transfers and best gait strategies post- op. Only hip precaution listed is hyperextension and ed pt in this as well. She has no steps to enter home. Goals Bed Mobility Goal Independent Transfer Goal Independent,Front Wheeled Walker Gait Goal Independent,Front Wheel Walker Gait Distance 100 Days to Meet Goals 2 Frequency of Treatment Frequency Of Treatment Twice a Day Treatment Plan Physical Therapy Treatment Plan Bed Mobility Training,Transfer Training,Gait Training, Therapeutic Exercise,Balance Retraining,Post Op Education, Discharge Planning,Hot or Cold Pack,Neuromuscular Re-ed, Coordination Retraining,Manual Therapy Precautions Other Precautions No hyperextension right leg Weight Bearing Status Weight Bearing Status Weight Bear as Tolerated Recommendations To Nursing Amount of Assist Needed 1 Person Assist Discharge Recommendations PT Discharge Recommendations Home with Assistance, Outpatient PT Transportation Needs at Discharge Private Vehicle
--- NOTE | 2024-03-25 15:13 | OT.IP.EVAL ---
Current Diagnoses Unilateral primary osteoarthritis, right hip (03/25/24) Surgery Performed Operation Date: 03/25/24 07:45 Actual Procedures p Total Hip Arthroplasty/Anterior Approach(Right) - Bonny Hernandez MD Past Medical History (Last Reviewed 03/25/24 @ 06:40 by Cathie Vance, RN) HLD (hyperlipidemia) HTN (hypertension) Migraine Surgical History (Last Reviewed 03/25/24 @ 06:40 by Cathie Vance, RN) No significant past surgical history Occupational Therapy Inpatient Evaluation/Re-Eval M1 PT/OT-IP Prior Functional Status Start: 03/25/24 13:01 Freq: NEEDED Status: Active Protocol: Document 03/25/24 15:14 [facility] (Rec: 03/25/24 15:26 [facility] [id number]) Medical Review Prior Functional Status Medical History Reviewed Yes Diet/Fluid Consistency Regular Communication WNLs Mobility and Gait Mod I with cane or walker Activities of Daily Living and IADL's I but had pain. Social History Household Members none Living Arrangements House Number of Floors (Floors) One Floor Number of Stairs To Enter/Railing? No steps to enter. Home Environment Standard Height Toilet,Walk in Shower,Built-In Shower Seat Home Equipment Front Wheel Walker,Straight Cane,Raised Toilet Seat w/ Armrests,Shower Seat without Backrest,Hand Held Shower Employment Status Retired Additional Social History Comment Pt daughter is flying up from [place] [employer] to spend 5 nights with her in her home M2 OT-IP Current Condition Start: 03/25/24 15:14 Freq: Status: Active Protocol: Document 03/25/24 15:14 [facility] (Rec: 03/25/24 15:26 [facility] [id number]) Occupational Therapy Current Condition Current Condition Evaluation Date 03/25/24 Treatment Diagnosis S/P R ROSA MARIA anterior Diagnosis Onset Date 03/25/24 Post Operative Precautions Anterior Hip Precautions No Hip Extension,No Hip External Rotation Other Precautions DO not hyperextend hip. M3 OT- IP Subjective and Pain Start: 03/25/24 15:14 Freq: Status: Active Protocol: Document 03/25/24 15:14 [facility] (Rec: 03/25/24 15:26 [facility] [id number]) OT- Subjective Occupational Therapy Visit Type Type Initial Evaluation Visit Start Time 14:40 Visit Stop Time 15:13 Occupational Therapy Visit Comments Patient Comments Pt agreed to get up. Patient/Caregiver Goals TO go home. OT Pain Assessment Pain When Pain Assessed At Rest Pain Present Pain Present Pain Reported Location right thigh Intensity 1 Scale Used Numeric (0 - 10) M4 OT- IP ADL's Start: 03/25/24 15:14 Freq: Status: Active Protocol: Document 03/25/24 15:14 [facility] (Rec: 03/25/24 15:26 [facility] [id number]) OT MED-[id number]-[id number] Comments OT Self-Feeding Comments Not at meal time. OT ADL-Grooming Comments OT Grooming Comments Not performed. OT ADL-Oral Care Comments Oral Care Comments Not performed. OT ADL-Dressing General Eval Lower Body Dressing Ability Maximum Assistance Areas Needing Assistance Socks Comments OT Dressing Comments Able to show pt LB dressing equipment and not to excessively externally rotate her RLE especially for ADL needs. OT ADL-Toileting Comments OT Toileting Comments Educated may be easier to stand and wipe. OT ADL-Bathing Comments OT Bathing Comments NOt performed. M5 OT- IP IADL's Start: 03/25/24 15:14 Freq: Status: Active Protocol: Document 03/25/24 15:14 [facility] (Rec: 03/25/24 15:26 [facility] [id number]) OT-Instrumental Activities of Daily Living Home Safety Awareness Awareness of Need for Assistance at Home Good Awareness Ability to Problem Solve Emergency Able to Problem Solve Situations Home Safety Comments Pt's daughter to be there to assist her. M6 OT- IP Functional Cognition Start: 03/25/24 15:14 Freq: Status: Active Protocol: Document 03/25/24 15:14 [facility] (Rec: 03/25/24 15:26 [facility] [id number]) Cognitive Factors Limiting Selfcare Function Cognitive Ability Level of Alertness Alert Patient Orientation Name,Age,Birthday,Month,Date, Year,Day of Week,Place, Situation Attention Span Ability Capable of Focused Attention, Capable of Sustained Attention Ability to Follow Commands Able to Follow One Step Commands Cognitive Comments Cognitive Assessment Comments Pt able to follow commands for ADL and mobility needs. Pt asked if it was okay to have wine and emphasized not to have wine especially as she is on pain medications. Pt needing vc for safety awareness for hand placement. OT- Vision and Hearing OT- Vision Assessment Visual Acuity Glasses All The Time Visual Attentiveness WFL Occular Pursuits WFL M7 OT- IP Mobility and Balance Start: 03/25/24 15:14 Freq: Status: Active Protocol: Document 03/25/24 15:14 [facility] (Rec: 03/25/24 15:26 [facility] [id number]) OT- Bed Mobility Assessment Supine to Sit Supine to Sit Assist Contact Guard Assistance OT-Transfer Assessment Sit to and From Stand Sit to and from Stand Contact Guard Assistance Transfers Transfer Ability Contact Guard Assistance Technique Transfer Destination Bed,Chair,Toilet Transfer Technique Stand Step Pivot Devices Transfer Assistive Devices Gait Belt,Front Wheeled Walker Comments Mobility Comments CGA with FWW. OT- Balance Assessment Sitting Balance and Reactions Static Sitting Balance Ability Normal Dynamic Sitting Balance Ability Good Standing Balance and Reactions Static Standing Balance Ability Good Dynamic Standing Balance Ability Fair M8 OT- IP Objective Assessments Start: 03/25/24 15:14 Freq: Status: Active Protocol: Document 03/25/24 15:14 [facility] (Rec: 03/25/24 15:26 [facility] [id number]) OT Gross Range of Motion Upper Extremity Range of Motion ROM Impairments WFL for needs of OT eval. OT Strength Comments Strength Comments WFL for OT eval. M9 OT- IP Assessment and Plan Start: 03/25/24 15:14 Freq: Status: Active Protocol: Document 03/25/24 15:14 [facility] (Rec: 03/25/24 15:26 [facility] [id number]) OT Summary Assessment and Plan Potential Rehabilitation Potential Good Analytic Complexity at Evaluation Low Summary OT Impairments Pain,Balance,Functional Mobility,Grooming,Dressing, Toileting,Bathing,Toilet Transfers,Shower Transfers Progress Towards Goals Progressing Toward Goals Assessment Summary Pt low complexity and main barriers are pain, decreased ability to move her RLE in the bed and needing assist of the strap to move her RLE today. Pt's daughter flying in to stay with her for 5 days to assist. Pt to go home with assist and outpt PT. Goals Dressing Goal Independent Toileting Goal Independent Bathing Goal Independent Toilet Transfer Goal Independent Shower Transfer Goal Independent Days to Meet Goals 7 Frequency of Treatment Other frequency 5x/week Treatment Plan OT Treatment Plan ADL Training,Functional Mobility,Patient/Family Education,Discharge Planning Discharge Recommendations OT Discharge Recommendations Home with Assistance, Outpatient PT Transportation Needs at Discharge Private Vehicle
[2024-03-25] MEDS: ACETAMINOPHEN 325 MG TABLET 650 MG PO (16:54)
--- NOTE | 2024-03-25 17:04 | PC.NURSE ---
Patient arrived from PACU today at 1240 pm. She is A&Ox4, VSS, afebrile on RA. She reports pain is minimal to R hip. Aquacel dressing c/d/i. She has full sensation to BLE's after spinal block. MD Hernandez at bedside this afternoon evaluating patient encouarging her to get up to chair. She is able to participate with PT/OT today and ambulate to bathroom. Bed alarm on, Call light in reach,prn pain medication, IV abx, encouraged IS use, SCD's on, admission assessment completed, continuous pulse ox, frequent rounding
[2024-03-25] MEDS: ASPIRIN EC 81 MG TABLET PO (20:14)
[2024-03-25] MEDS: VERAPAMIL 80 MG TABLET 160 MG PO (20:14)
[2024-03-25] MEDS: DOCUSATE 100 MG CAPSULE PO (20:14)
[2024-03-26] MEDS: CEFAZOLIN 2 GM/100 ML PREMIX 100 ML IV
[2024-03-26] MEDS: ACETAMINOPHEN 325 MG TABLET 650 MG PO ×2 (00:06→08:21)
[2024-03-26 06:51] LABS: Hematocrit 37.5 % (36-46); Hemoglobin 12.5 g/dL (12.0-16.0)
[2024-03-26 08:00] VITALS: BP 115/75; PULSE 86; TEMP 36.6; O2SAT 91
[2024-03-26] MEDS: OXYCODONE IR 5 MG TABLET PO (08:15)
[2024-03-26] MEDS: DOCUSATE 100 MG CAPSULE PO (08:18)
[2024-03-26] MEDS: ASPIRIN EC 81 MG TABLET PO (08:18)
[2024-03-26] MEDS: hydroCHLOROthiazide 25 MG TABLET PO (08:19)
[2024-03-26] MEDS: POTASSIUM CHLORIDE 10 MEQ TAB PO (08:19)
[2024-03-26 08:20] VITALS: BP 115/75; PULSE 80
[2024-03-26] MEDS: VERAPAMIL 80 MG TABLET 160 MG PO (08:20)
[2024-03-26] MEDS: ATORVASTATIN 20 MG TABLET 10 MG PO (08:21)
[2024-03-26] MEDS: OXYBUTYNIN 5 MG ER TAB PO (08:21)
[2024-03-26] MEDS: IBUPROFEN 400 MG TABLET PO (08:24)
--- NOTE | 2024-03-26 08:37 | P.DS_ITS ---
History of Present Illness History of Present Illness Date Patient Seen: 03/26/24 Time Patient Seen: 08:37 Chief complaint: R ROSA MARIA *OPB* Narrative: The patient has had progressively worsening right hip pain with radiographic changes consistent with arthritis. Non-operative management has failed and the patient has requested total hip replacement. The risks, benefits and alternatives to surgery were discussed with the patient prior to proceeding. Risks discussed included, but were not limited to, failure to relieve pain, leg length discrepancy, dislocation, stiffness, infection, nerve damage, deep venous thrombosis, pulmonary embolism, stroke, coma, heart attack, permanent paralysis and , as well as the potential need for eventual revision of the prosthetic. Discharge Providers Provider Discharge Date: 03/26/24 Primary care physician: Maggie Emerson PA-C Consults: 03/25/24 06:00 Consult to Anesthesiology Routine Comment: Consulting Provider: Anesthesiologist Reason for consultation: Regional block for post operative pain control 03/25/24 12:26 Consult to Discharge Planning Routine Comment: Consult to Occupational Therapy Evaluate & Treat Comment: Physician Instructions: Evaluate and treat Consult to Physical Therapy Evaluate & Treat Comment: Physician Instructions: post op ROSA MARIA protocol Discharge provider: Benja Maya PA-C Summary Hospital Course Discharge Diagnosis: Severe right hip OA Hospital Course: Procedure: Right total hip arthroplasty anterior approach Same procedure as scheduled: Yes Surgeon: Bonny Hernandez Mobile Lab Technician: Gerard Martinez Anesthesia Type: Spinal Operative Notes Findings: Severe right hip OA, self bone, adequate stability Closure Type: primary Specimen(s): none sent Prosthetic devices, grafts, tissues, transplants, or devices: Hernandez and nephew R3 52, neutral poly liner,one 6.5 mm screw, polar stem size 4 standard offset, 36+ 0 cobalt chrome head Estimated Blood Loss (mL): 250 Blood products transfused: none Status at Discharge Cognitive/behavioral status at discharge: oriented Functional status at discharge: uses cane/walker Overall status at discharge: patient is back to baseline Time Spent with Patient Time spent: Less than 30 minutes Exam Vital Signs (past 8 hours): - 03/26/24 08:00 03/26/24 08:20 Temperature 97.8 F Pulse Rate 86 80 Blood Pressure 115/75 115/75 Pulse Oximetry 91 Oxygen Flow Rate 0 Fraction of Inspired Oxygen 32 SaO2/FiO2 Ratio 300 Oxygen Delivery Method Nasal Cannula Oxygen Flow Rate 0 Narrative Exam Narrative: Patient found resting comfortably in bed. She is in good spirits. Denies any new numbness tingling pain down either extremity. Denies any fever chills nausea or vomiting. 5/5 strength in hip flexors, quadriceps, hamstrings, DF, PF, EHL bilaterally. Sensation to light touch intact throughout BLE. Calves soft, compressible, nontender. ?Dressing placed intraoperatively CDI. Resp Effort & Inspection: normal respiratory effort and able to speak in complete sentences Objective Labs 03/26/24 06:27 Labs: Laboratory Results - last 24 hr 03/26/24 06:27 Hgb 12.5 Hct 37.5 PFSH Medical History Migraine HTN (hypertension) HLD (hyperlipidemia) Surgical History No significant past surgical history Social History household members: none Smoking Status: Former smoker alcohol intake: current Discharge Assessment & Plan Assessment and Plan Assessment: Status post right hip ROSA MARIA Plan of Treatment: Discharge to home. Baseline multimodal pain control with acetaminophen 500 mg q.4 hours and meloxicam 7.5 mg b.i.d. Patient has been prescribed oxycodone 5 mg q.4 hours PRN for breakthrough pain. Patient already takes aspirin 325 mg daily. Continue taking this dosage for at least 6 weeks for DVT prevention. Initiate physical therapy in the next 5-10 days. Follow up clinic in 2 weeks for wound check. Discharge Plan Discharge Plan Patient Disposition: Home Provider Discharge Comment: DC Pending PT approval Discharge orders & Medications Discharge Orders: Discharge (Order); Ordered 03/26/24 Ordered By: Benja Maya Prescriptions: Continued atorvastatin 10 mg tablet 10 mg PO DAILY oxybutynin chloride 5 mg tablet extended release 24hr 5 mg PO DAILY verapamil 240 mg tablet extended release 240 mg PO BID hydrochlorothiazide 25 mg tablet 25 mg PO DAILY potassium chloride 10 mEq tablet,ER particles/crystals 10 meq PO DAILY aspirin 325 mg Tablet 325 mg PO DAILY meloxicam 7.5 mg tablet 7.5 mg PO DAILY Follow up/Referrals: Maggie Emerson, PANazC [Primary Care Provider] - Diet/Activity/Treatments Diet: Diet as Tolerated Activity: Ambulate multiple times a day. Use a cane or walker as needed. Full weight on leg. Cold/Heat Therapy: Use ice multiple times a day. Skin/Wound/Dressing Care Skin care: Leave dressing on. Okay to shower Report to your healthcare provider any signs of infection, such as:: chills, fever, night sweats, unusual drainage and unusual redness Dressing: Leave dressing on. Do not soak in a bath or hot tub Visit Report/Discharge Packet Instructions: DI for Hip Replacement Stand Alone Forms: Patient Portal/API, Surgery Discharge Discharge Data Primary Care Provider: Maggie Emerson Attending Provider: Bonny Hernandez VTE Deep Vein Thrombosis/Pulmonary Embolism Present on Admission: No
--- NOTE | 2024-03-26 09:30 | PT.IPTN ---
Current Diagnoses Unilateral primary osteoarthritis, right hip (03/25/24) Surgery Performed Operation Date: 03/25/24 07:45 Actual Procedures p Total Hip Arthroplasty/Anterior Approach(Right) - Bonny Hernandez MD Physical Therapy Treatment Note M2 PT-IP Current Condition Start: 03/25/24 13:01 Freq: NEEDED Status: Discharge Protocol: Document 03/25/24 14:41 MB (Rec: 03/25/24 15:07 MB [id number]) Physical Therapy Current Condition Current Condition Evaluation Date 03/25/24 Treatment Diagnosis R anterior ROSA MARIA M3 PT-IP Subjective Start: 03/25/24 13:01 Freq: NEEDED Status: Discharge Protocol: Document 03/26/24 09:30 AB (Rec: 03/26/24 12:39 AB [id number]) Subjective Physical Therapy Visit Type Type Treatment Note Visit Start Time 09:30 Visit Stop Time 10:05 Number of TOW TRUCK DISPATCHER Visits 0 Physical Therapy Visit Comments Patient Comments agreeable to do PT Therapy Pain Assessment Pain When Pain Assessed At Rest Pain Present Pain Present Pain Reported Location right thigh Intensity 2 Scale Used increases to 9/10 with mobility Description Burning Pain Management Techniques Apply Cold,Distraction, Modification of Treatment,Re- positioning,Timing of Activity with Medications M4 PT-IP Mobility and Gait Start: 03/25/24 13:01 Freq: NEEDED Status: Discharge Protocol: Document 03/26/24 09:30 AB (Rec: 03/26/24 12:39 AB [id number]) PT-Bed Mobility Assessment Supine to Sit Supine to Sit Standby Assistance Sit to Supine Sit to Supine Standby Assistance PT-Transfer Assessment Sit to and From Stand Sit to and from Stand Standby Assistance Equipment Transfer Assistive Device Gait Belt,Front Wheeled Walker Orthotic/Prosthetic Devices or Brace: No Transfers Transfer Destination Bed,Chair Transfer Technique ambulated Transfer Ability Level of Assist Standby Assistance,1 Person Assistance,Use of Upper Extremities Comments Mobility Comments pt sitting on the chair and agreed to do PT. reviewed hip precautions and pt able to recall. pt completed sit to stand SBA and ambulated in room ~ 20 ft using FWW SBA and sat on EOB. completed bed mobility sit<>supine SBA with use of belt as leg cosmetology instructor to assist. pt completed sit<> stand from the EOB SBA and ambulated in the hallway using FWW ~ 75 ft SBA. pt sat back on chair and positioned. call light and table placed within reach. pt has no further concerns. Gait Assessment Gait Gait Assistance Required: Standby Assistance Distance (Feet) 75 Able to Maintain Weight Bearing Status Yes During Gait Assistive Devices Assistive Device Gait Belt,Front Wheeled Walker Orthotic/Prosthetic Devices or Brace: No Gait Deviations General Gait Pattern Antalgic Factors Limiting Gait Function Factors Limiting Gait Function Decreased Activity Tolerance, Decreased Strength,Limited Range of Motion,Pain,Poor Balance,Poor Safety Awareness M5 PT-IP Objective Assessments Start: 03/25/24 13:01 Freq: NEEDED Status: Discharge Protocol: Document 03/25/24 14:41 MB (Rec: 03/25/24 15:07 MB [id number]) Orientation Orientation/Cognition Level of Alertness Alert Orientation Name,Age,Birthday,Month,Date, Year,Day of Week,Place, Situation Language Function Ability No Deficits Noted Safety Awareness Understands Safety Issues Memory Description No Deficits Noted Gross Range of Motion Upper Extremity ROM Impairments Defer to OT Lower Extremity ROM Assessment Right Impaired Impairments Right hip not tested post-op Strength Lower Extremity Strength Assessment Right Impaired Comments Strength Comments Right hip not tested post-op and LEs are functional Coordination Assessment Gross Coordination Gross Coordination Impaired Sensation Assessment Comments Sensation Comments Reports that post-op paresthesias are resolved Muscle Tone Muscle Tone WNL Yes M6 PT-IP Treatment Start: 03/25/24 13:01 Freq: NEEDED Status: Discharge Protocol: Document 03/26/24 09:30 AB (Rec: 03/26/24 12:39 AB [id number]) Physical Therapy Treatment Education Education Provided Precautions,Weight Bearing Status,Safety M7 PT-IP Assessment and Plan Start: 03/25/24 13:01 Freq: NEEDED Status: Discharge Protocol: Document 03/26/24 09:30 AB (Rec: 03/26/24 12:39 AB [id number]) PT Summary Assessment and Plan Potential Rehabilitation Potential Good Summary Impairments Pain,ROM,Strength,Balance, Coordination,Sensation,Tone, Cognition,Bed Mobility, Transfers,Gait,Activity Tolerance Progress Towards Goals Progressing Toward Goals Assessment Summary pt progressing with mobility and able to ambulate using FWW SBA ~ 75 ft. pt will have her daughter assist her at home. has outpt PT set up. pt may go home when medically stable. Goals Bed Mobility Goal Independent Transfer Goal Independent,Front Wheeled Walker Gait Goal Independent,Front Wheel Walker Gait Distance 100 Days to Meet Goals 2 Frequency of Treatment Frequency Of Treatment Twice a Day Treatment Plan Physical Therapy Treatment Plan Bed Mobility Training,Transfer Training,Gait Training, Therapeutic Exercise,Balance Retraining,Post Op Education, Discharge Planning,Hot or Cold Pack,Neuromuscular Re-ed, Coordination Retraining,Manual Therapy Precautions Anterior Hip Precautions No Hip Extension,No Hip External Rotation Weight Bearing Status Weight Bearing Status Weight Bear as Tolerated Allowed Weight Bearing Amount (enter % RLE WBAT or #) (%) Recommendations To Nursing Amount of Assist Needed 1 Person Assist Discharge Recommendations PT Discharge Recommendations Home with Assistance, Outpatient PT Transportation Needs at Discharge Private Vehicle
--- NOTE | 2024-03-26 10:35 | OT.IP.TRT ---
Current Diagnoses Unilateral primary osteoarthritis, right hip (03/25/24) Surgery Performed Operation Date: 03/25/24 07:45 Actual Procedures p Total Hip Arthroplasty/Anterior Approach(Right) - Bonny Hernandez MD Occupational Therapy Treatment Note M2 OT-IP Current Condition Start: 03/25/24 15:14 Freq: Status: Active Protocol: Document 03/25/24 15:14 [facility] (Rec: 03/25/24 15:26 [facility] [id number]) Occupational Therapy Current Condition Current Condition Evaluation Date 03/25/24 Treatment Diagnosis S/P R ROSA MARIA anterior Diagnosis Onset Date 03/25/24 Post Operative Precautions Anterior Hip Precautions No Hip Extension,No Hip External Rotation Other Precautions DO not hyperextend hip. M3 OT- IP Subjective and Pain Start: 03/25/24 15:14 Freq: Status: Active Protocol: Document 03/26/24 10:43 [facility] (Rec: 03/26/24 10:48 [facility] [id number]) OT- Subjective Occupational Therapy Visit Type Type Treatment Note Visit Start Time 10:25 Visit Stop Time 10:33 Occupational Therapy Visit Comments Patient Comments Pt's daughter present and able to finalize OT needs. Patient/Caregiver Goals TO go home. OT Pain Assessment Pain When Pain Assessed During Mobility Pain Present Pain Present Pain Reported M4 OT- IP ADL's Start: 03/25/24 15:14 Freq: Status: Active Protocol: Document 03/26/24 10:43 [facility] (Rec: 03/26/24 10:48 [facility] [id number]) OT ADL-Dressing General Eval Upper Body Dressing Ability Standby Assistance Lower Body Dressing Ability Moderate Assistance Areas Needing Assistance Pants/Shorts Comments OT Dressing Comments Educated to dress the RLE first and take out last. OT ADL-Toileting Comments OT Toileting Comments Educated may be easier to stand and wipe and use of pads /brief at night. M5 OT- IP IADL's Start: 03/25/24 15:14 Freq: Status: Active Protocol: Document 03/25/24 15:14 [facility] (Rec: 03/25/24 15:26 [facility] [id number]) OT-Instrumental Activities of Daily Living Home Safety Awareness Awareness of Need for Assistance at Home Good Awareness Ability to Problem Solve Emergency Able to Problem Solve Situations Home Safety Comments Pt's daughter to be there to assist her. M6 OT- IP Functional Cognition Start: 03/25/24 15:14 Freq: Status: Active Protocol: Document 03/26/24 10:43 [facility] (Rec: 03/26/24 10:48 [facility] [id number]) Cognitive Factors Limiting Selfcare Function Cognitive Ability Safety Awareness Decreased Ability to Apply Precautions,Underestimates Need for Assistance Cognitive Comments Cognitive Assessment Comments Pt needing reminders for FWW safety and to not do excessive movements during dressing needs. M7 OT- IP Mobility and Balance Start: 03/25/24 15:14 Freq: Status: Active Protocol: Document 03/26/24 10:43 [facility] (Rec: 03/26/24 10:48 [facility] [id number]) OT-Transfer Assessment Sit to and From Stand Sit to and from Stand Standby Assistance,Contact Guard Assistance Technique Transfer Destination Chair Devices Transfer Assistive Devices Front Wheeled Walker Comments Mobility Comments SBA with FWW OT- Balance Assessment Sitting Balance and Reactions Static Sitting Balance Ability Normal Dynamic Sitting Balance Ability Good Standing Balance and Reactions Static Standing Balance Ability Good Dynamic Standing Balance Ability Good M8 OT- IP Objective Assessments Start: 03/25/24 15:14 Freq: Status: Active Protocol: Document 03/25/24 15:14 [facility] (Rec: 03/25/24 15:26 [facility] [id number]) OT Gross Range of Motion Upper Extremity Range of Motion ROM Impairments WFL for needs of OT eval. OT Strength Comments Strength Comments WFL for OT eval. M9 OT- IP Assessment and Plan Start: 03/25/24 15:14 Freq: Status: Active Protocol: Document 03/26/24 10:43 [facility] (Rec: 03/26/24 10:48 [facility] [id number]) OT Summary Assessment and Plan Potential Rehabilitation Potential Good Analytic Complexity at Evaluation Low Summary Progress Towards Goals Progressing Toward Goals Assessment Summary Able to finalize OT needs with pt and her daughter. Pt to go home and have outpt PT. Goals Dressing Goal Independent Toileting Goal Independent Bathing Goal Independent Toilet Transfer Goal Independent Shower Transfer Goal Independent Days to Meet Goals 3 Treatment Plan OT Treatment Plan ADL Training,Functional Mobility,Patient/Family Education,Discharge Planning Discharge Recommendations OT Discharge Recommendations Home with 09/12 Assist Available,Outpatient PT Transportation Needs at Discharge Private Vehicle
--- NOTE | 2024-03-26 11:00 | PC.NURSE ---
Patient is A&OX4, VSS, afebrile on RA. She tolerates breakfast well and getting up to BR. Aquacel c/d/i.She is cleared by PT/OT for discharge home today. Daughter and dog daycare provider at bedside. She verbalizes understanding of meds, activity limitations, site care/ s/sx of infection, as well as follow up post-op appointment. She is escorted via w/ch to private vehicle for discharge home today with daughter with all of her belongings including FWW.
--- NOTE | 2024-03-26 11:14 | CM.DANOTE ---
DCP Assessment Note: Pt is a 78yo female, resident of [place], is s/p R ROSA MARIA. Pt lives in a house, alone. Pt's Primary Care Provider is Maggie Emerson PA-C and insurance is [employer]. Reviewed chart and team rounds for pt's medical status and initial discharge needs. Pt discharged before DCP could complete CM assessment at bedside, this was an assessment complied from EMR. Plan: Pt discharged home, no needs identified via RN and EMR. MARIO Hendricks Discharge Planning/Care Management CM Discharge Assessment Start: 03/26/24 11:13 Freq: Status: Active Protocol: Document 03/26/24 11:13 MW (Rec: 03/26/24 11:14 MW [id number]) Discharge Planning Assessment Assigned Web Services Architect CECIL Rose DPOA/Assigned Designee Name Dami Head, Friend Contact Information [phone] Advance Directives? Yes Advance Directives on File No History Provided By Medical Record Expected Length of Stay 1 Has Patient been admitted in last 30 No days? Prior Living Arrangements House Household Members none DME Already Rented / Owned FWW / Walker,Cane Discharge Plan Home Review Status In Process Please Provide Date Initial DC 03/26/24 Assessment Was Performed
== END 2024-03-26 11:00 | disposition home or self-care (01) ==
LOC: OR 06:06 → AC 06:06
PROVIDERS: PCP Student in an Organized Health Care Education/Training Program; Referring Provider Orthopaedic Surgery; Visit Provider Orthopaedic Surgery
PROC: (CPT 27130; principal; 2024-03-25 07:45)
DX: M16.11 Unilateral primary osteoarthritis, right hip (principal); M25.751 Osteophyte, right hip
CPT/HCPCS: 27130; 36415; 73502; 73503; 76000; 85014; 85018; 94762; 97116; 97161; 97165; 97530; 97535; C1776; C9290; J0171; J0690; J1100; J2405; J2704; J3010

== ENCOUNTER → 2024-11-01 16:10 | Outpatient (CLI) | payer MEDICARE, SELFPAY ==
[2024-03-25 16:55] VITALS: BMI 29.7
--- NOTE | 2024-11-01 16:18 | EKG_ITS ---
[address] [address] Test Date: 2024-11-01 Pat Name: Jenni Mota Department: [facility] Room: Gender: Female Inspector Returned Materials: EBEN : 1945 Requested By: Order Number: [id number] Reading MD: Matthew Pena MD Measurements Intervals [place] Rate: 45 P: 71 AK: 188 QRS: -42 QRSD: 96 T: 68 QT: 450 QTc: 389 Interpretive Statements Sinus bradycardia Left axis deviation Low voltage QRS Cannot rule out Anterior infarct , age undetermined Electronically Signed On 11-01-2024 16:59:43 PDT by Matthew Pena MD
[2024-11-01 16:38] LABS: Appearance Urine UA SL CLOUDY; Bilirubin Urine UA NEGATIVE (NEGATIVE); Color Urine UA YELLOW; Glucose Urine UA NEGATIVE (Negative); Ketones Urine UA NEGATIVE (NEGATIVE); Leukocyte Esterase Urine UA 3+ (NEGATIVE); Nitrite Urine UA NEGATIVE (Negative); Occult Blood Urine UA NEGATIVE (Negative); Protein Urine UA NEGATIVE (Negative); Urobilinogen Urine UA 0.2 E.U./dL (0.2)
[2024-11-01 16:39] LABS: pH Urine UA 7.5 (4.5-8.0)
[2024-11-01 16:44] LABS: Add Manual Diff / Slide Review NO; Bacteria Urine Moderate (10-30); Basophils Absolute Auto 0 /uL (0-100); Basophils Percent Auto 0.5 % (0-2); Culture Indicated Urine Specimen Cultured; Eosinophils Absolute Auto 200 /uL (0-450); Eosinophils Percent Auto 2.6 % (2-4); Hematocrit 44.5 % (36-46); Hemoglobin 15.3 g/dL (12.0-16.0); Lymphocytes Absolute Auto 1900 /uL (1100-4500); Lymphocytes Percent Auto 26.8 % (25-40); Mean Corpuscular HGB Conc 34.2 % (30-36); Mean Corpuscular Hemoglobin 32.8 PG (26-34); Mean Corpuscular Volume 95.8 fL (80-100); Monocytes Absolute Auto 600 /uL (0-900); Monocytes Percent Auto 8.5 % (3-14); Neutrophils Absolute Auto 4300 /uL (1500-7000); Neutrophils Percent Auto 61.6 % (50-75); Platelet Count 234 X10^3/uL (150-400); RBC Urine 0-1/HPF (0-5/HPF); Red Blood Cell Count 4.65 X10^6/uL (4.0-5.2); Squamous Epithelial Cell Urine 1-5 /HPF (0-5/HPF); Urine Volume 10mL (spun); WBC Urine 5-10/HPF (0-5/HPF); White Blood Cell Count 6.9 X10^3/uL (4.5-11.0)
[2024-11-01 16:52] LABS: Hemoglobin A1C% w Est Avg Glu 4.9 % (4.0-6.0)
[2024-11-01 17:07] LABS: BUN Creatinine Ratio 21.6 (6-22); Blood Urea Nitrogen 16 mg/dL (7-17); Calcium 9.8 mg/dL (8.4-10.2); Carbon Dioxide 29 mmol/L (22-32); Chloride 102 mmol/L (98-107); Estimated Glomerular Filt Rate > 60 mL/min (>60); Glucose 90 mg/dL (70-99); HEMOLYSIS < 15 (0-50); Potassium 4.1 mmol/L (3.4-5.1); Sodium 137 mmol/L (137-145)
== END ==
PROVIDERS: PCP Student in an Organized Health Care Education/Training Program; Referring Provider Orthopaedic Surgery; Visit Provider Orthopaedic Surgery
DX: Z01.818 Encounter for other preprocedural examination (principal); Z01.812 Encounter for preprocedural laboratory examination; N39.0 Urinary tract infection, site not specified; R73.9 Hyperglycemia, unspecified
CPT/HCPCS: 36415; 80048; 81001; 83036; 85025; 87077; 87086; 87186; 93005

== ENCOUNTER → 2025-03-10 14:39 | Outpatient (CLI) | payer MEDICARE, SELFPAY ==
[2024-12-28 15:47] VITALS: BMI 29.2
[2025-03-10 16:09] LABS: Add Manual Diff / Slide Review NO; Hematocrit 44.5 % (36-46); Hemoglobin 15.0 g/dL (12.0-16.0); Lymphocytes Absolute Auto 1700 /uL (1100-4500); Mean Corpuscular HGB Conc 33.7 % (30-36); Mean Corpuscular Hemoglobin 31.3 PG (26-34); Mean Corpuscular Volume 93.0 fL (80-100); Platelet Count 256 X10^3/uL (150-400)
[2025-03-10 16:16] LABS: Hemoglobin A1C% w Est Avg Glu 5.2 % (4.0-6.0)
[2025-03-10 16:39] LABS: Alanine Aminotransferase 22 IU/L (<35); Albumin 4.3 g/dL (3.5-5.0); Albumin Globulin Ratio 1.7 (1.0-2.8); Alkaline Phosphatase 119 U/L (38-126); Blood Urea Nitrogen 18 mg/dL (7-17); Calcium 9.8 mg/dL (8.4-10.2); Carbon Dioxide 27 mmol/L (22-32); Chloride 101 mmol/L (98-107); Cholesterol 165 mg/dL (140-199); Estimated Glomerular Filt Rate > 60 mL/min (>60); Globulin 2.6 g/dL (1.7-4.1); Glucose 80 mg/dL (70-99); HDL Cholesterol 103 mg/dL (40-60); HEMOLYSIS < 15 (0-50); Potassium 4.1 mmol/L (3.4-5.1); Sodium 136 mmol/L (137-145); Total Protein 6.9 g/dL (6.3-8.2); Triglycerides 115 mg/dL (35-150)
[2025-03-10 17:22] LABS: Vitamin D 25 Hydroxy (D3) 35.1 ng/mL (30.0-100.0)
== END ==
PROVIDERS: PCP Student in an Organized Health Care Education/Training Program; Referring Provider Student in an Organized Health Care Education/Training Program; Visit Provider Student in an Organized Health Care Education/Training Program
DX: Z00.00 Encounter for general adult medical examination without abnormal findings (principal)
CPT/HCPCS: 36415; 80053; 80061; 82306; 83036; 85025